=== PATIENT | female | born 1950 | race Caucasian/White ===

== ENCOUNTER → 2016-09-26 | Outpatient (CLI) | payer BC, OTHER ==
[~2016-09-26] MED LIST: ASPCH81X PO; CHOL200010; ESCI10TA17 PO; ESOM20CA PO; HYDR25TA4 PO
--- NOTE | 2016-09-27 08:02 | MAMMOGRAPHY REPORT ---
BILATERAL DIGITAL SCREENING MAMMOGRAM WITH CAD: 09/26/2016 CLINICAL HISTORY: Routine screening examination. TECHNIQUE: Bilateral CC and MLO views were obtained. Current study was also evaluated with a Comput er Aided Detection (CAD) system. COMPARISON: Comparison is made to exams dated: 09/23/2015 mammogram, 08/21/2014 mammogram, 09/16/2009 m ammogram, 11/21/2014 mammogram - [facility], and 10/03/2006. BREAST COMPOSITION: The tissue of both breasts is heterogeneously dense, which may obscure small ma sses. FINDINGS: Circumscribed oval masses in the 4:00 and 6:00 axes of the middle one third of the left br east have slightly increased in size compared to last years mammogram. However, these were previous ly documented to represent benign simple cysts on ultrasound. No new suspicious spiculated or irreg ular mass, architectural distortion or cluster of suspicious microcalcifications is seen bilaterally . IMPRESSION: ACR BI-RADS CATEGORY 1: NEGATIVE There is no mammographic evidence of malignancy. A 1 year screening mammogram is recommended. The p atient will receive written notification of the results. Approximately 10% of breast cancers are not detected with mammography. A negative mammographic repor t should not delay biopsy if a clinically suggestive mass is present. Zaira Cordoba M.D. ay/:09/26/2016 16:48:36 Brake Operator Sheet Metal: Luisa NASSAR(Georgi)(Rehan), [facility] letter sent: Normal 1/2 BI-RADS Code: ACR BI-RADS Category 1: Negative
== END | disposition home or self-care (01) ==
LOC: C.MAMM 14:32
PROVIDERS: ATTEND Family Medicine
DX: Z12.31 Encounter for screening mammogram for malignant neoplasm of breast (principal)

== ENCOUNTER → 2017-09-27 | Outpatient (CLI) | payer BC ==
--- NOTE | 2017-09-28 08:04 | MAMMOGRAPHY REPORT ---
BILATERAL DIGITAL SCREENING MAMMOGRAM TOMOSYNTHESIS WITH CAD: 09/27/2017 CLINICAL HISTORY: Routine screening. Patient has no complaints. TECHNIQUE: Breast tomosynthesis in addition to standard 2D mammography was performed. Current study was also evaluated with a Computer Aided Detection (CAD) system. COMPARISON: Comparison is made to exams dated: 09/26/2016 mammogram, 09/29/2015 ultrasound, 09/29/2015 amanda mogram, 09/23/2015 mammogram, 11/21/2014 ultrasound, and 11/21/2014 mammogram - [facility] BREAST COMPOSITION: The tissue of both breasts is heterogeneously dense, which may obscure small mas ses. FINDINGS: No suspicious masses, calcifications, or areas of architectural distortion are noted in ei ther breast. There has been no significant interval change compared to prior exams. Circumscribed be nign-appearing masses in the left breast have fluctuated in size compared to prior mammograms and wer e shown to represent benign cysts on the prior 2015 ultrasound exam. IMPRESSION: ACR BI-RADS CATEGORY 2: BENIGN There is no mammographic evidence of malignancy. A 1 year screening mammogram is recommended. The pa tient will receive written notification of the results. Approximately 10% of breast cancers are not detected with mammography. A negative mammographic report should not delay biopsy if a clinically suggestive mass is present. Kristin Randhawa M.D. /:09/27/2017 15:05:06 Hse Specialist: Radha Ghotra, [facility] letter sent: Normal 1/2 BI-RADS Code: ACR BI-RADS Category 2: Benign
== END | disposition home or self-care (01) ==
LOC: C.MAMM 14:41
PROVIDERS: ATTEND Family Medicine
DX: Z12.31 Encounter for screening mammogram for malignant neoplasm of breast (principal)

== ENCOUNTER 2022-05-18 21:04 | Observation (INO) ==
[2022-05-18 21:31] LABS: Basophils # (auto) 0.06 K/uL (0-0.2); Basophils % (auto) 0.8 %; Eosinophils # (auto) 0.16 K/uL (0-0.50); Eosinophils % (auto) 2.2 %; Hematocrit (blood only) 38.2 % (34.1-44.9); Hemoglobin 12.9 g/dl (12.0-16.0); Immature Granulocytes # (auto) 0.02 K/uL (0.00-0.02); Immature Granulocytes % (auto) 0.3 %; Lymphocytes # (auto) 2.12 K/uL (1.2-3.4); Lymphocytes % (auto) 28.5 %; Mean Corpuscular Hemoglobin 28.7 pg (25.0-34.0); Mean Corpuscular Hgb Conc 33.8 g/dL (32.0-36.0); Mean Corpuscular Volume 84.9 fL (80.0-100.0); Mean Platelet Volume 11.6 fL (9.4-12.3); Monocytes # (auto) 0.82 K/uL (0.24-0.82); Neutrophils # (auto) 4.25 K/uL (1.4-6.5); Neutrophils % (auto) 57.2 %; Platelet Count 203 K/uL (130-400); RDW Coefficient of Variation 14.7 % (11.5-14.5); RDW Standard Deviation 45.4 fL (36.4-46.3); White Blood Count 7.43 K/ul (4.8-10.8)
--- NOTE | 2022-05-18 21:47 | Emergency Department Note ---
Impression & Plan Chest pain, Hypertension ED Provider Note NAME: JONN CUEVAS AGE: 71 SEX: F : 1950 ARRIVES VIA: Walk-In INFORMANT: Patient ED PROVIDER(S): Isaias Thornton DO CHIEF COMPLAINT: chest pain HPI: Patient is a 71-year-old female who presents to the ER for chest pressure. She notes that this started this morning around 8 AM. Its worse when she is up moving around and resolves/improves with rest. She notes some left jaw pain. She does have some shortness of breath with it. She describes as a tightness/squeezing pain in the middle of her chest. Currently is a 0 out of 10. Denies any belly pain, nausea, vomiting, or diarrhea. No dysuria, urgency, or frequency. She has taken omeprazole and Maalox without improvement. Family history of CVA and CHF. ROS: See above HPI for pertinent positives & negatives. A total of 10 systems reviewed and were otherwise negative. PAST MEDICAL HISTORY:See Below PAST SURGICAL HISTORY:See Below FAMILY HISTORY:See Below SOCIAL HISTORY:See Below HOME MEDICATIONS:See Below ALLERGIES:See Below VITALS:See Below PHYSICAL EXAMINATION: GENERAL: Sitting up in bed, alert, well appearing, well nourished, no distress, non-toxic EYE EXAM: normal conjunctiva. OROPHARYNX: no exudate, no erythema, lips, buccal mucosa, and tongue normal and mucous membranes are moist NECK: supple, no nuchal rigidity, no adenopathy, non-tender LUNGS: Clear to auscultation. Normal chest wall mechanics HEART: no murmurs, S1 normal and S2 normal ABDOMEN: abdomen soft, non-tender, normo-active bowel sounds, no masses, no rebound or guarding. UPPER EXTREMITIES: upper extremities are grossly normal. LOWER EXTREMITIES: No pitting edema. Calf cervical bilateral NEURO EXAM: Normal sensorium, cranial nerves II-XII grossly intact, normal speech, no gross weakness of arms, no gross weakness of legs. MEDICAL DECISION MAKING: Patient is a 71-year-old female with a past medical history of hypertension and hyperlipidemia and extensive family history of CVA the presents the ER for chest pain. IV was established blood work was obtained. Labs show no significant leukocytosis or anemia. BMP along with LFTs bilirubin and lipase was unremarkable. Troponin was negative. COVID was negative. She was given a spirin. Blood pressure trended down from 180s to 130s with rest. Chest x-ray was unremarkable. EKG was unchanged from previous. Patient was pain-free while in the ER. Discussed the hospitalist admitted for further work-up. Discussed with Pt concerning signs and symptoms to watch out for. Pt was instructed to follow up with their PCP and discussed with the patient their option to return to the ED at anytime for persistent or worsening symptoms. The appropriate anticipatory guidance and out-patient management, including indications for return to the emergency department, were explained at length to the patient and understood. Triage Nursing notes reviewed. Limited review of prior medical records performed Vital Signs: reviewed and remarkable for HTN Differential diagnosis: Cardiac ischemia, aortic dissection, pulmonary embolism, pneumothorax, pneumonia, pericarditis, myocarditis, esophageal rupture, GERD, cholecystitis, pancreatitis, musculoskeletal, as well as other pathologies. ER treatment provided: See below Diagnostics interpreted by me: ECG: Sinus rhythm rate of 72 Normal axis No PVCs T wave inversion in V4 through V6 with T wave flattening in V3 No symptom change from previous Cardiac Monitoring: An order was placed for continuous cardiac monitoring. The monitor shows a rate of 80 with sinus rhythm. Laboratory studies: As stated above and show below. Imaging studies: Portable AP upright 1 view of the chest shows no focal infiltrate or pneumothorax Consultation(s): Discussed with Nick Levy for further evaluation Procedures: none Critical Care: None Past Med/Surg History Social History Smoking Status: Unknown if ever smoked Preferred Language: Urdu Feels Safe at Home: Yes Allergies Allergies Allergy/AdvReac Type Severity Reaction Status Date / Time codeine AdvReac Intermediate Vomiting Verified 05/18/22 21:59 Home Meds Home Medications Medication Instructions Recorded Confirmed albuterol sulfate 90 mcg/actuation 2 puff inhalation DIRECTED PRN 05/18/22 05/18/22 aerosol inhaler Shortness Of Breath cholecalciferol (vitamin D3) 25 25 mcg PO DAILY 05/18/22 05/18/22 mcg (1,000 unit) capsule (Vitamin D3) escitalopram oxalate 10 mg tablet 10 mg PO DAILY 05/18/22 05/18/22 esomeprazole magnesium 20 mg 20 mg PO BID 05/18/22 05/18/22 capsule,delayed release hydrochlorothiazide 12.5 mg tablet 12.5 mg PO DAILY 05/18/22 05/18/22 pravastatin 10 mg tablet 10 mg PO DAILY 05/18/22 05/18/22 tolterodine 4 mg capsule,extended 4 mg PO DAILY 05/18/22 05/18/22 release 24 hr Results & Data (ED) Vital Signs Vital Signs - 24 hr 05/18/22 21:10 05/18/22 21:27 05/18/22 22:32 Temperature 36.5 C Temperature Source Temporal Artery Scan Pulse Rate 78 Pulse Rate [Finger] 69 Respiratory Rate 20 16 Respiratory Effort / Characteristics Non-Labored Spontaneous Respiratory Depth Normal Blood Pressure 187/95 H Blood Pressure [Right Arm] 129/88 Blood Pressure Mean 125 Blood Pressure Mean [Right Arm] 101 Pulse Oximetry 93 97 97 Oxygen Delivery Method Room Air Room Air Sepsis New/Unexplained Change in Mental Status N/A Sepsis Action Taken by Nursing No Action Required Laboratory Data Result diagrams: 05/18/22 21:20 05/18/22 21:20 Lab Results 05/18/22 05/18/22 05/18/22 Range/Units 21:20 21:20 23:04 WBC 7.43 (4.8-10.8) K/ul RBC 4.50 (3.93-5.22) M/uL Hgb 12.9 (12.0-16.0) g/dl Hct 38.2 (34.1-44.9) % MCV 84.9 (80.0-100.0) fL MCH 28.7 (25.0-34.0) pg MCHC 33.8 (32.0-36.0) g/dL RDW Std Deviation 45.4 (36.4-46.3) fL RDW Coeff of [place] 14.7 H (11.5-14.5) % Plt Count 203 (130-400) K/uL MPV 11.6 (9.4-12.3) fL Immature Gran % (Auto) 0.3 % Neut % (Auto) 57.2 % Lymph % (Auto) 28.5 % [place] % (Auto) 11.0 % Eos % (Auto) 2.2 % Baso % (Auto) 0.8 % Neut # (Auto) 4.25 (1.4-6.5) K/uL Lymph # (Auto) 2.12 (1.2-3.4) K/uL [place] # (Auto) 0.82 (0.24-0.82) K/uL Eos # (Auto) 0.16 (0-0.50) K/uL Baso # (Auto) 0.06 (0-0.2) K/uL Immature Gran # (Auto) 0.02 (0.00-0.02) K/uL Sodium 137 (136-145) mmol/L Potassium 4.2 (3.5-5.1) mmol/L Chloride 103 (98-107) mmol/L Carbon Dioxide 30 (21-32) mmol/L Anion Gap 4 (3-11) BUN 23 (6-23) mg/dl Creatinine 0.73 (0.6-1.2) mg/dl Est Cr Clr Drug Dosing 81.6 ml/min Est GFR ( Amer) 95.4 ml/min Est GFR (Non-Af Amer) 82.3 ml/min BUN/Creatinine Ratio 31.5 H (10-20) Glucose 116 H (70-99(Fasting)) mg/dl Calcium 10.0 (8.5-10.1) mg/dl Total Bilirubin 0.4 (0.2-1.0) mg/dl AST 21 (13-39) U/L ALT 14 (7-52) U/L Alkaline Phosphatase 74 (34-104) U/L Troponin I High Sens 4.4 (0-14) pg/ml Total Protein 7.3 (6.0-8.3) gm/dl Albumin 4.1 (3.4-5.0) gm/dl Globulin 3.2 (2.5-4.0) gm/dl Albumin/Globulin Ratio 1.3 (0.9-2) Lipase 21 (11-82) U/L SARS-CoV-2, RNA, NAAT NEGATIVE (NEGATIVE) Administered Medications Discontinued Medications Aspirin (Aspirin Chew 324 Mg) 324 mg PO NOW STA Stop: 05/18/22 22:11 Last Admin: 05/18/22 22:48 Dose: 324 mg Documented By: ZORAIDA Discharge Plan Visit Data Chief Complaint: Chest Pain Stated Complaint: CHEST PAIN, ELEVATED BLOOD PRESSURE, SOB ED Provider: Isaias Thornton Discharge Problem: Chest pain, Hypertension Forms Stand Alone Forms: My [facility] [employer] Prescriptions Prescriptions: No Action tolterodine 4 mg capsule,extended release 24hr 4 mg PO DAILY pravastatin 10 mg tablet 10 mg PO DAILY albuterol sulfate 90 mcg/actuation HFA aerosol inhaler 2 puff INHALATION DIRECTED PRN (Reason: Shortness Of Breath) esomeprazole magnesium 20 mg capsule,delayed release(DR/EC) 20 mg PO BID cholecalciferol (vitamin D3) [Vitamin D3] 25 mcg (1,000 unit) Capsule 25 mcg PO DAILY escitalopram oxalate 10 mg tablet 10 mg PO DAILY hydrochlorothiazide 12.5 mg tablet 12.5 mg PO DAILY Referrals Referrals: Ruben Biggs MD [Primary Care Provider] -
[2022-05-18 21:56] LABS: Albumin Globulin Ratio 1.3 (0.9-2); Albumin Level 4.1 gm/dl (3.4-5.0); BUN Creatinine Ratio 31.5 (10-20); Bilirubin,Total 0.4 mg/dl (0.2-1.0); Creatinine Clr Calc Pharmacy 81.6 ml/min; Est GFR (African American) 95.4 ml/min; Est GFR (Non-African American) 82.3 ml/min; Globulin 3.2 gm/dl (2.5-4.0); Potassium 4.2 mmol/L (3.5-5.1); Total Protein 7.3 gm/dl (6.0-8.3)
[2022-05-18 22:02] LABS: Troponin I High Sensitivity 4.4 pg/ml (0-14)
[2022-05-18] MEDS ORDERED: ASPIRIN CHEW 324 MG PO STA (22:10)
--- NOTE | 2022-05-18 22:32 | History & Physical Report ---
Date of Service May 18, 2022 Assessment & Plan (1) Chest pain: Plan: -EKG on admission- sinus rhythm, T wave inversions V4-V6 -Initial troponin negative, will repeat -[facility] exercise stress test 11/2020- normal -[facility] echocardiogram 03/2021- EF 60%, grade 1 diastolic dysfunction, mild concentric LVH -Possibly due to coronary disease given history, may also be GI-based/secondary to GERD -Repeat echocardiogram ordered -Continue aspirin, statin -Cardiology consult deferred on admission -Telemetry monitoring (2) Hypertension: Plan: -Continue HCTZ 12.5 mg daily (3) Hyperlipidemia: Plan: -Continue pravastatin 10 mg daily (4) GERD (gastroesophageal reflux disease): Plan: -Continue esomeprazole or formulary equivalent/pantoprazole in hospital (5) Depression: Plan: -Continue Lexapro (6) Overactive bladder: Plan: -Continue tolterodine (7) Vitamin D deficiency: Plan: -Continue vitamin D supplementation Plan FENGI: Heart-healthy Code status: Full DVT ppx: SCDs Isolation: None Dispo: Medical/surgical with telemetry History of Present Illness Chief Complaint: Chest pain Primary Care Provider: Ruben Biggs MD 71 yo F with HTN, HLD, GERD, depression presenting with chest pain. Pt seen in [facility] clinic on 05/17 and diagnosed with sacroilitis, also received flu shot. She denies any history of severe reaction to flu shot. States she awoke this AM with severe headache which Tylenol relieved. Later at 7 AM, began to experience midsternal intermittent chest tightness with 5-6/10 severity, sharp quality with radiation to jaw, associated exertional dyspnea. Pt felt this was possible indigestion but chest pain not relieved by Nexium or Maalox. She does n ote similar history of chest tightness with exertional dyspnea occurring intermittently over the past year though it was never as severe before. Pt does have history passed exercise stress test 11/2020, failed stress test in 03/2021 (due to not tolerating contrast well- back pain) but was seen for f/u by [facility] cardiology in 08/2021 and not diagnosed with any active heart disease. She does report significant FMH of [place], CHF and CVA. Pt arrived to ED with BP 187/95 which later normalized. Otherwise hemodynamically stable. CBC, CMP unremarkable. CXR without acute process. Troponin negative. EKG with T wave inversions in V4-V6. Pt given aspirin 324 mg. On evaluation, pt reports feeling comfortable with only mild residual tightness. Still having some dyspnea though this is mild too and only on exertion. No other acute complaints. Allergies Allergy/AdvReac Type Severity Reaction Status Date / Time codeine AdvReac Intermediate Vomiting Verified 05/18/22 21:59 Home Medications Medication Instructions Recorded Confirmed Type albuterol sulfate 90 mcg/actuation 2 puff inhalation DIRECTED PRN 05/18/22 05/18/22 History aerosol inhaler Shortness Of Breath cholecalciferol (vitamin D3) 25 25 mcg PO DAILY 05/18/22 05/18/22 History mcg (1,000 unit) capsule (Vitamin D3) escitalopram oxalate 10 mg tablet 10 mg PO DAILY 05/18/22 05/18/22 History esomeprazole magnesium 20 mg 20 mg PO BID 05/18/22 05/18/22 History capsule,delayed release hydrochlorothiazide 12.5 mg tablet 12.5 mg PO DAILY 05/18/22 05/18/22 History pravastatin 10 mg tablet 10 mg PO DAILY 05/18/22 05/18/22 History tolterodine 4 mg capsule,extended 4 mg PO DAILY 05/18/22 05/18/22 History release 24 hr losartan 25 mg tablet 25 mg PO QAM 30 days #30 tabs 05/19/22 Rx Past Med/Surg History Social History Smoking Status: Never smoker Hx Alcohol Use: No Hx Substance Use: No Preferred Language: Yakut Communication Ability: Effective Exhibit Technician Required: No Beliefs That Will Affect Care: None Current Living Situation: Spouse Feels Safe at Home: Yes Assistive Devices: Glasses Review of Systems Review of Systems: Per HPI Physical Exam Physical Exam: GENERAL: Sitting up in bed, alert, well appearing, well nourished, no distress, non-toxic HEENT: Moist mucous membranes, anicteric sclerae, EOMI, PERRL, no JVD CV: RRR, normal S1 and S2, no murmurs Resp: CTAB, unlabored respirations ABDOMEN: abdomen soft, non-tender, nondistended LOWER EXTREMITIES: No peripheral edema NEURO: AOx3, no focal motor or sensory deficits Results & Data Results & Data ([facility]) Vital Signs (Past 12 Hours) Vital Signs Temp Pulse Resp BP Pulse Ox O2 Del Method 05/18/22 21:27 97 Room Air 05/18/22 21:10 36.5 C 78 20 187/95 H 93 Room Air Supervising Physician Co-Signing Physician Notes Attending addendum: I have physically seen this patient, have supervised the medical residents activities, and agree with the H&P unless as otherwise noted. Assessment and Plan: Chest pain/hypertension- The patient will be admitted to telemetry for serial cardiac enzymes, serial EKG's, cardiac rhythm monitoring and a 2-D echocardiogram with Dopplers. Given aspirin 324 mg from the ED EKG with nonspecific changes continue HCTZ and losartan Hyperlipidemia- Continue pravastatin Check a fasting lipid panel Depression- Continue escitalopram GERD- Continue Nexium/pantoprazole Remaining orders and notations as noted Resident Activity Tracking Resident Involvement: Resident Care Provided Care Provided: Adult Hospital Medicine
[2022-05-19] MEDS ORDERED: ALUMINUM/MAGNESIUM SUSP 30 ML UDC PO PRN (00:55)
[2022-05-19] MEDS ORDERED: ONDANSETRON INJ 2 MG/ML 2 ML VIAL IV PRN (00:55)
[2022-05-19] MEDS ORDERED: MAGNESIUM HYDROXIDE SUSP 30 ML UDC PO PRN (00:55)
[2022-05-19] MEDS ORDERED: NITROGLYCERIN SL 0.4 MG/TAB TAB SL PRN (00:55)
[2022-05-19] MEDS ORDERED: ALBUTEROL HFA 8 GM INHALER INH PRN (00:55)
[2022-05-19] MEDS ORDERED: ACETAMINOPHEN 325 MG TAB PO PRN (00:55)
[2022-05-19] MEDS ORDERED: ACETAMINOPHEN 325 MG TAB ONE (01:43)
[2022-05-19 06:26] LABS: Hematocrit (blood only) 35.8 % (34.1-44.9); Hemoglobin 12.2 g/dl (12.0-16.0); Mean Corpuscular Hemoglobin 28.4 pg (25.0-34.0); Mean Corpuscular Hgb Conc 34.1 g/dL (32.0-36.0); Mean Corpuscular Volume 83.3 fL (80.0-100.0); Mean Platelet Volume 11.7 fL (9.4-12.3); Platelet Count 177 K/uL (130-400); RDW Coefficient of Variation 14.6 % (11.5-14.5); RDW Standard Deviation 44.7 fL (36.4-46.3); White Blood Count 5.12 K/ul (4.8-10.8)
[2022-05-19 07:06] LABS: BUN Creatinine Ratio 32.2 (10-20); Calcium 9.3 mg/dl (8.5-10.1); Creatinine Clr Calc Pharmacy 98.5 ml/min; Est GFR (African American) 106.1 ml/min; Est GFR (Non-African American) 91.6 ml/min; Potassium 3.5 mmol/L (3.5-5.1); Troponin I High Sensitivity 8.4 pg/ml (0-14)
--- NOTE | 2022-05-19 07:12 | XRay Report ---
XR chest 1V portable CLINICAL HISTORY: Chest Pain TECHNIQUE: Single frontal radiograph of the chest was obtained. Comparison: Comparison is made to chest radiograph in 2020 FINDINGS: No lines and tubes are seen. Cardiomegaly is noted. The lungs are clear apart from mild chronic inter stitial disease. No evidence of pleural effusion or pneumothorax. IMPRESSION: No acute chest disease. ACT 112: Negative or not required by law. Electronically signed by: Rajinder Moreau M.D. 05/19/2022 7:10 AM
[2022-05-19] MEDS ORDERED: PRAVASTATIN SOD 10 MG TAB PO SCH (09:00)
[2022-05-19] MEDS ORDERED: TOLTERODINE TARTRATE LA 4 MG CAPCR PO SCH (09:00)
[2022-05-19] MEDS ORDERED: hydroCHLOROthiazide 25 MG TAB PO SCH (09:00)
[2022-05-19] MEDS ORDERED: ESCITALOPRAM OXALATE 10 MG TAB PO SCH (09:00)
[2022-05-19] MEDS ORDERED: CHOLECALCIFEROL 1,000 UNITS 25 MCG TAB PO SCH (09:00)
[2022-05-19] MEDS ORDERED: ASPIRIN 81 MG ECTAB PO SCH (09:00)
[2022-05-19] MEDS ORDERED: PANTOprazole 40 MG TAB PO SCH (09:00)
--- NOTE | 2022-05-19 13:24 | Cardiology Consultation ---
Date of Consultation May 19, 2022 Assessment & Plan (1) Chest pain: Plan Impression: 1. Chest pressure now resolved 2. Hypertensive response to exercise on stress test 11/2020, no inducible ischemia, normal exercise tolerance 3. History of DELATORRE going back at least to December 2020. 4. HLD 5. Recent RSV infection Ms. Morse's complaints of shortness of breath go back to at least 12/2020. She would feel sob with exertion but also at times while at rest. She also had chest pressure at rest which was improved with ppi use. At this point her chest discomfort has resolved. She continues to have complaints of sob. I had recommended PFTs and a sleep study in the past. She reports that she had her PFTs done but I don't see record of them in the [facility] system or [facility]. She declined a sleep study. Her blood pressure was elevated at the time of her EKG which may be the source of the very subtle changes in her lateral T waves, but overall I do not think they are significantly different from her previous. Her troponin has remained wnl. She had been placed on losartan 25 mg a year ago and stopped taking it sometime after that. I recommend she restart. She does have some crackles in her bases on auscultation and I wonder if she has some atelectasis causing her to feel sob. She could work on an incentive spirometer to help open her alveoli. Her weight is stable, CXR was clear, no edema to suggest fluid overload. She is awaiting results of her echo. She should also get up and ambulate the halls. If she feels at her baseline with exertion and there is no change on her echo, she could be discharged home from a cardiac perspective. History of Present Illness Attending Physician: Nikki Sims MD History of Present Illness Ms. Morse presented to the ED yesterday after about 12 hours of sob and chest discomfort. She also had a headache. She describes the chest discomfort as a twisting or tightness in her left chest. She felt a tingle in her left jaw but otherwise no radiation. No diaphoresis, no nausea. In the ED her blood pressure was 187/95. Her troponin was normal. Her EKG showed non specific T wave abnormalities in the lateral leads, similar to previous. No ectopy on her telemetry. She is no longer having any chest discomfort. She feels like she has to cough if she lays flat but no chest discomfort. Allergies Allergy/AdvReac Type Severity Reaction Status Date / Time codeine AdvReac Intermediate Vomiting Verified 05/18/22 21:59 Home Medications Medication Instructions Recorded Confirmed Type albuterol sulfate 90 mcg/actuation 2 puff inhalation DIRECTED PRN 05/18/22 05/18/22 History aerosol inhaler Shortness Of Breath cholecalciferol (vitamin D3) 25 25 mcg PO DAILY 05/18/22 05/18/22 History mcg (1,000 unit) capsule (Vitamin D3) escitalopram oxalate 10 mg tablet 10 mg PO DAILY 05/18/22 05/18/22 History esomeprazole magnesium 20 mg 20 mg PO BID 05/18/22 05/18/22 History capsule,delayed release hydrochlorothiazide 12.5 mg tablet 12.5 mg PO DAILY 05/18/22 05/18/22 History pravastatin 10 mg tablet 10 mg PO DAILY 05/18/22 05/18/22 History tolterodine 4 mg capsule,extended 4 mg PO DAILY 05/18/22 05/18/22 History release 24 hr Patient History Social History Smoking Status: Never smoker Hx Alcohol Use: No Hx Substance Use: No Preferred Language: Wolof Communication Ability: Effective Party Coordinator Required: No Beliefs That Will Affect Care: None Current Living Situation: Spouse Other Information That Helps Us Care for You: No Feels Safe at Home: Yes Safety Concerns: Feels Safe At This Time Assistive Devices: Glasses Review of Systems Review of Systems: All systems reviewed & are unremarkable except as noted in HPI & below Physical Exam Constitutional: WD/WN, vitals as above Respiratory: normal respiratory effort Auscultation: + crackles (bilateral bases) Cardiovascular: RRR, no murmur, no edema Skin: no rashes, warm and dry Neurologic: moves all extremities and awake Psychiatric: A+Ox3, euthymic affect Results & Data ([facility]) Vital Signs (Past 12 Hours) Vital Signs Temp Pulse Pulse Resp BP BP Pulse Ox 05/19/22 11:51 36.5 C 65 20 127/77 93 05/19/22 08:00 36.8 C 70 21 142/72 H 93 05/19/22 07:47 05/19/22 07:10 60 05/19/22 03:56 36.4 C L 65 19 137/71 95 O2 Del Method 05/19/22 11:51 Room Air 05/19/22 08:00 Room Air 05/19/22 07:47 Room Air 05/19/22 07:10 05/19/22 03:56 Room Air
--- NOTE | 2022-05-19 15:18 | Hospitalist Progress Note ---
Date of Service May 19, 2022 Assessment & Plan (1) Chest pain: Plan: Patient presents with complaints of chest pain, which had been going on for several hours prior to presentation Noted to have a BP of around 180 systolic and some mild T wave changes on EKG, however, trops wnl ECHO has been done, result pending cardiology on consult, appreciate recs (2) Hypertension: Plan: Patient was on Losartan at some point, but stopped taking it Was started on HCTZ here in the hospital BP is npw under better control, 127/77 Will d/c on Losartan and HCTZ (3) Depression: Plan d/c if echo is ok Admission and Anticipated Discharge Date Admission Date: May 18, 2022 Subjective patient seen and examined, chest pain has resolved Review of Systems Review of Systems: All systems reviewed are negative, apart from the ones contained in the history. Physical Exam Physical Exam: The patient is awake, alert and oriented 3, well developed and well nourished, normocephalic and atraumatic, lying in bed and in no acute distress. HEENT--PERRL, EOMI, mucous membranes and oropharynx mildly dry Neck--supple. No JVD. No bruits. Thyroid normal, trachea midline, no adenopathy. Heart--normal S1 and S2. No murmurs, rubs or gallops. Lungs--clear bilaterally, no respiratory distress, no accessory muscle use. Abdomen--normal bowel sounds and soft. Mild epigastric and left sided abdominal pain Extremities--no cyanosis or clubbing. No edema. Dermatologic--normal skin turgor, normal color, no abnormal lymph nodes, no rash. Neurologic--cranial nerves II through XII grossly intact. Rheumatologic--normal range of motion. Psychiatric--normal affect. Results & Data Results & Data ([facility]) Vital Signs (Past 12 Hours) Vital Signs Temp Pulse Pulse Resp BP BP Pulse Ox 05/19/22 11:51 97.7 F 65 20 127/77 93 05/19/22 08:00 98.2 F 70 21 142/72 H 93 05/19/22 07:47 05/19/22 07:10 60 05/19/22 03:56 97.5 F L 65 19 137/71 95 O2 Del Method 05/19/22 11:51 Room Air 05/19/22 08:00 Room Air 05/19/22 07:47 Room Air 05/19/22 07:10 05/19/22 03:56 Room Air PG Care Time/CCT Total # of Minutes Spent Total Time Spent with Patient: Total time spent is greater than 50% in coordination of care (as documented) at patient's floor/unit and/or counseling patient: Coding Level of Care Code 47468 Subseq Obs Care Lvl 2 Diagnoses Chest pain R07.9 Hypertension I10 Depression F32.A Time Spent (min) 35
--- NOTE | 2022-05-19 16:24 | XCELERA ---
[id number]
--- NOTE | 2022-05-19 16:52 | Discharge Summary ---
Date of Service May 19, 2022 Admission HPI Per Admitting Provider 71 yo F with HTN, HLD, GERD, depression presenting with chest pain. Pt seen in [facility] clinic on 05/17 and diagnosed with sacroilitis, also received flu shot. She denies any history of severe reaction to flu shot. States she awoke this AM with severe headache which Tylenol relieved. Later at 7 AM, began to experience midsternal intermittent chest tightness with 5-6/10 severity, sharp quality with radiation to jaw, associated exertional dyspnea. Pt felt this was possible indigestion but chest pain not relieved by Nexium or Maalox. She does note similar history of chest tightness with exertional dyspnea occurring i ntermittently over the past year though it was never as severe before. Pt does have history passed exercise stress test 11/2020, failed stress test in 03/2021 (due to not tolerating contrast well- back pain) but was seen for f/u by [facility] cardiology in 08/2021 and not diagnosed with any active heart disease. She does report significant FMH of CA, CHF and CVA. Pt arrived to ED with BP 187/95 which later normalized. Otherwise hemodynamically stable. CBC, CMP unremarkable. CXR without acute process. Troponin negative. EKG with T wave inversions in V4-V6. Pt given aspirin 324 mg. On evaluation, pt reports feeling comfortable with only mild residual tightness. Still having some dyspnea though this is mild too and only on exertion. No other acute complaints. Principal Diagnosis chest pain Discharge Exam The patient is awake, alert and oriented 3, well developed and well nourished, normocephalic and atraumatic, lying in bed and in no acute distress. HEENT--PERRL, EOMI, mucous membranes and oropharynx mildly dry Neck--supple. No JVD. No bruits. Thyroid normal, trachea midline, no adenopathy. Heart--normal S1 and S2. No murmurs, rubs or gallops. Lungs--clear bilaterally, no respiratory distress, no accessory muscle use. Abdomen--normal bowel sounds and soft. Mild epigastric and left sided abdominal pain Extremities--no cyanosis or clubbing. No edema. Dermatologic--normal skin turgor, normal color, no abnormal lymph nodes, no rash. Neurologic--cranial nerves II through XII grossly intact. Rheumatologic--normal range of motion. Psychiatric--normal affect. Discharge Data Allergies Allergy/AdvReac Type Severity Reaction Status Date / Time codeine AdvReac Intermediate Vomiting Verified 05/18/22 21:59 Consultations 05/18/22 22:10 ED Decision to Admit Stat 05/19/22 08:36 Consult Cardiology Routine Hospital Course (1) Chest pain: Patient presents with complaints of chest pain, which had been going on for several hours prior to presentation Noted to have a BP of around 180 systolic and some mild T wave changes on EKG, however, trops wnl ECHO wnl, EF 55-60%, no wall motion abnormality cardiology on consult, appreciate recs (2) Hypertension: Patient was on Losartan at some point, but stopped taking it Was started on HCTZ here in the hospital BP is npw under better control, 127/77 Will d/c on Losartan and HCTZ (3) Depression: Plan d/c if echo is ok Total Time Total Time Spent Total Time Spent (In Minutes): 35 Discharge Plan Discharge Items Patient Disposition: Home - Self-Care Reason For Visit: CHEST PAIN Discharge Diagnosis: chest pain Activity: Resume your previous activity Non-emergency contact: Primary Care Provider Call non-emergency contact if: you have any medication questions Follow-up/Referrals: Ruben Biggs MD [Primary Care Provider] - Diet: Regular Addtl Attending Provider Instructions: please make appointment to follow up with your PCP Take your Blood Pressure medicines as prescribed Pending Studies at Discharge: No Stand-Alone Forms: My [employer], Smoking Cessation Medications and DC Order Prescriptions: New losartan 25 mg Tablet 25 mg PO QAM 30 Days Qty: 30 0RF Continued tolterodine 4 mg capsule,extended release 24hr 4 mg PO DAILY pravastatin 10 mg tablet 10 mg PO DAILY albuterol sulfate 90 mcg/actuation HFA aerosol inhaler 2 puff INHALATION DIRECTED PRN (Reason: Shortness Of Breath) esomeprazole magnesium 20 mg capsule,delayed release(DR/EC) 20 mg PO BID cholecalciferol (vitamin D3) [Vitamin D3] 25 mcg (1,000 unit) Capsule 25 mcg PO DAILY escitalopram oxalate 10 mg tablet 10 mg PO DAILY hydrochlorothiazide 12.5 mg tablet 12.5 mg PO DAILY Discharge Orders: Discharge Order (Routine); Ordered 05/19/22 Ordered By: Nikki Sims Admission Data Admit Date/Time: 05/18/22 23:33 Attending Provider: Nikki Sims Admit Provider: Jarvis Fernandes Primary Care Provider: Ruben Biggs Other Providers: Nick Levy ; Rajendra Carreno Coding Level of Care Code 20536 OBS Care - Discharge Diagnoses Chest pain R07.9 Hypertension I10 Depression F32.A Time Spent (min) 35
--- NOTE | 2022-05-20 02:48 | Billing Data ---
Date of Service May 20, 2022 Coding Level of Care Code INT OBSERVATION CARE 69M LVL 3
[2022-05-20] MEDS ORDERED: LOSARTAN POTASSIUM 25 MG TAB PO SCH (09:00)
--- NOTE | 2022-05-20 22:41 | Electrocardiogram Report ---
Test Reason : Blood Pressure : / mmHG Vent. Rate : 072 BPM Atrial Rate : 072 BPM P-R Int : 158 ms QRS Dur : 078 ms QT Int : 364 ms P-R-T Axes : 015 -04 033 degrees QTc Int : 398 ms Normal sinus rhythm Minimal voltage criteria for LVH, may be normal variant Nonspecific T wave abnormality Abnormal ECG When compared with ECG of 12-MAY-2021 04:49, No significant change was found Confirmed by Dre Verma ([id number]) on 05/20/2022 10:41:32 PM Referred By: REFERRED SELF Confirmed By:Dre Verma
== END 2022-05-19 17:39 | disposition home or self-care (01) ==
LOC: 2N 21:04 → ED 21:04 → SUATTDRO 23:33 → 2N 05-19 00:21